=== PATIENT | male | born 1955 | race Caucasian/White ===

== ENCOUNTER → 2017-01-07 | Outpatient (CLI) | payer BC ==
--- NOTE | 2017-01-07 11:33 | KCIC ---
Examination: MRI of the right knee without contrast HISTORY History of right knee pain in the medial aspect None available. TECHNIQUE Multiplanar, multisequence MR imaging of the right knee was performed without contrast Findings: The anterior cruciate ligament, posterior cruciate ligament appear intact. Mild increased signal identified in the body of the medial meniscus with a oblique increased signal in the undersurface posterior horn of the medial meniscus likelyundersurface flap tear. There is minimal extrusion of the medial meniscus medially, best visualized on series 8 image #12. The lateral meniscus appears intact. The medial collateral ligament is intact. The lateral collateral ligamentous complex including the fibular collateral ligament, biceps femoris tendon, popliteus tendon appear intact. The distal attachment of the iliotibial band is intact. Small knee joint effusion is identified. The extensor mechanism is intact and there is mild tendinosis of the quadriceps tendon and infrapatellar tendon. The medial retinaculum, lateral retinaculum appear intact. There is deep fissuring of cartilage identified in the medial patellofemoral compartment and in the medial compartment in the weightbearing portion. No evidence of popliteal cyst. There is no acute fracture or dislocation identified. Mild joint space loss identified in the medial compartment and the patellofemoral compartment likely due to degeneration. IMPRESSION - Tear of the medial meniscus likely undersurface flap tear of the posterior horn of the medial meniscus peripherally with some extrusion of the medial meniscus medially, best visualized on series 8 image #12. - Grade 2 chondromalacia patella. Grade 1 chondromalacia medial compartment . - Small knee joint effusion. Electronically signed by: Parveen Quinones (Jan 07, 2017 11:31:39)
== END | disposition home or self-care (01) ==
LOC: KCIC MRI 10:49
PROVIDERS: ATTEND Orthopaedic Surgery
DX: M25.561 Pain in right knee (principal)
CPT/HCPCS: 73721

== ENCOUNTER → 2017-10-08 | Outpatient (CLI) | payer BC ==
[~2017-10-08] MED LIST: IOHEXOL 300 MG/ML 100ML VIAL. IV ONE
--- NOTE | 2017-10-08 16:31 | KCIC ---
CT SOFT TISSUE NECK W/CONTRAST Indication: Hoarseness. Hemoptysis. Laryngeal pharyngeal reflux. . Comparison: No comparison is available. Contrast: Intravenous contrast administered. Exposure: One or more of the following individualized dose reduction techniques were utilized for this examination: 1. Automated exposure control 2. Adjustment of the mA and/or kV according to patient size 3. Use of iterative reconstruction technique. Findings: The airway is patent and midline. Epiglottis is not swollen. No evidence of parapharyngeal abscess. No evidence of prevertebral soft tissue swelling. Thyroid gland demonstrates a tiny nodule in the right lobe, 3 mm. Mild cervical lymph node enlargement is identified, slightly greater on the right. The largest of these on the right measures 19 mm long axis by 8 mm short axis. Mild degenerative changes at the cervical spine. There is near complete opacification of the right maxillary sinus. There is some internal density or calcification. There is obstruction of the right ostiomeatal unit by this tissue. Emphysematous changes are identified in the lung apices. IMPRESSION: 1. Mild cervical lymph node enlargement bilaterally. This is nonspecific, could be of infectious, inflammatory or neoplastic etiology. 2. The airway appears patent and midline. Electronically signed by: Perez Ramírez MD (10/08/2017 4:27 PM) [facility]
== END | disposition home or self-care (01) ==
LOC: KCIC CT 14:16
PROVIDERS: ATTEND Otolaryngology
DX: K21.9 Gastro-esophageal reflux disease without esophagitis (principal); R59.9 Enlarged lymph nodes, unspecified; R04.2 Hemoptysis; R49.0 Dysphonia; Z87.891 Personal history of nicotine dependence
CPT/HCPCS: 70491; Q9967